=== PATIENT | female | born 1950 | race African-American/Black ===

== ENCOUNTER 2017-04-12 17:51 | Inpatient (IN) | payer MEDICARE, MEDICAID ==
[~2017-04-12 17:51] MED LIST: ISOVUE-370 76%-LOCM 1 ML ONE
[2017-04-12 19:20] LABS: #Eosinphils 0.1 thou/uL (0.0-0.7); #Lymphocytes 1.3 thou/uL (1.20-3.40); #Neutrophils 8.3 thou/uL (1.40-6.50); %Basophils 0.1 % (0.0-1.0); %Eosinophils 0.5 % (0.0-10.0); %Monocytes 9.3 % (0.0-10.0); Hematocrit 31.6 % (36.0-47.0); Red Blood Cell (RBC) Count 3.76 mill/uL (4.20-5.40); White Blood Cell (WBC) Count 10.7 thou/uL (4.8-10.8)
[2017-04-12] MEDS ORDERED: Acetaminophen 500 MG TAB ONE (19:22)
[2017-04-12 19:38] LABS: Lactic Acid - Sepsis 1.1 mmol/L (0.5-2.2)
[2017-04-12 19:44] LABS: ALT (SGPT) 7 U/L (8-55); AST (SGOT) 14 U/L (5-34); Alkaline Phosphatase 105 U/L (40-150); Anion Gap 16 mmol/L (10-20); BUN (Urea Nitrogen) 26 mg/dL (9.8-20.1); Bilirubin, Total 0.6 mg/dL (0.2-1.2); Calc. Creatinine Clearance 0 mL/min (70-130); Calcium 9.6 mg/dL (7.8-10.44); Carbon Dioxide 24 mmol/L (23-31); Chloride 100 mmol/L (98-107); Estimated GFR-MDRD 29; Globulin 4.8 g/dL (2.4-3.5); Protein, Total 8.8 g/dL (6.0-8.3)
[2017-04-12] MEDS ORDERED: Piperacillin/Tazobactam 3.375 GM in Sodium Chloride 0.9% 100 ML IVPB SCH (19:45)
[2017-04-12 20:12] LABS: Bilirubin Negative (Negative); Blood, Urine Negative (Negative); Glucose, Urine (Dipstick) Negative (Negative); Ketone, Urine Negative (Negative); Nitrite Negative (Negative); Protein, Urine (Dipstick) Negative (Neg-Trace)
--- NOTE | 2017-04-12 21:08 | CT ---
CT ABDOMEN AND PELVIS WITH CONTRAST 04/12/17 HISTORY: Incisional cellulitis. COMPARISON: None. FINDINGS: There is some peripheral nodularity in the left lung base. No pericardial effusion. Dense mitral tracy lar calcifications. Prior cholecystectomy changes. There is extensive skin thickening along the right lower quadrant of t he abdomen. There is gas as well as small collection of fluid and phlegmonous changes along the prior ostomy site. This is abnormal given the timeline. Fluid can be seen extending to the fascia along th e lateral margin of the right rectus abdominis muscle. No dilated loops of large or small bowel withi n the peritoneal cavity. Anastomotic sutures are noted along the colon. Mild reservoir effect of the biliary system. Prior cholecystectomy. Posterior spinal fusion lumbar spine with laminectomy changes. IMPRESSION: Likely infection along the sinus tract along the ostomy takedown site with fluid and gas extending al nimo the tract. This is abnormal given the timeline for takedown. No large round ovoid fluid collectio n is present as this is likely actively draining abscess. POS: [facility]
[2017-04-12] MEDS ORDERED: Ondansetron ODT 4 MG TAB SL PRN (23:09)
[2017-04-12] MEDS ORDERED: HYDROcodone/Acetaminophen 5/325 mg Tablet PO PRN ×2 (23:09)
[2017-04-12] MEDS ORDERED: Ondansetron HCl/PF 4 MG/2 ML Vial IVP PRN (23:09)
[2017-04-12] MEDS ORDERED: Acetaminophen 325 MG TAB PO PRN (23:09)
[2017-04-12] MEDS: 1/2 NS w/KCL 20 mEq 1,000 ML IV SCH (23:35)
[2017-04-12] MEDS ORDERED: Vancomycin HCl 1 GM in Premix Bag 1 BAG IVPB SCH (23:59)
[2017-04-13 01:12] VITALS: BMI 40.9
[2017-04-13] MEDS: Piperacillin/Tazobactam 2.25 GM in Sodium Chloride 0.9% 100 ML IVPB SCH ×4 (02:14→19:01)
[2017-04-13] MEDS: 1/2 NS w/KCL 20 mEq 1,000 ML IV SCH (08:57)
[2017-04-13] MEDS ORDERED: D5 1/2 NS w/20 mEq KCL 1,000 ML IV SCH (12:30)
[2017-04-13] MEDS ORDERED: Lidocaine 1% w/Epinephrine 1:100K 20 ML VIAL IJ SCH (12:30)
--- NOTE | 2017-04-13 15:31 | HP ---
CHIEF COMPLAINT: Abdominal pain and swelling. HISTORY OF PRESENT ILLNESS: Ms. Torres is a 66-year-old woman with an extensive past surgical history . She underwent an ileostomy takedown by Dr. Alberto about 6 weeks ago and was doing fine until about a week ago, when she noticed some swelling at her old ostomy site. She called and made an appointmen t for next Saturday, but the office had told her that if it got worse over the weekend she should come into the emergency room. Last night it started to get more painful and more swollen, so she did com e to the emergency room. While she was in the emergency room, she got up to walk to the bathroom and started to drain from her old ostomy site incision. A CT scan was performed, which showed some gas tracking down through the soft tissues from the incision consistent with a draining abscess. The pat asya has not had any abdominal pain except just at the incision. She has been eating and drinking no rmally and having normal bowel movements. She had a low-grade fever last night, but prior to that roberson s not had any fevers. PAST MEDICAL HISTORY: Hypertension, diabetes, arthritis, slipped disks and pinched nerves in her elyse k, and chronic renal insufficiency. 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 Back surgery, hysterectomy, and bilateral knee replacements. FAMILY HISTORY: She does have a family history of heart disease in a sister and 3 brothers. She has a family history of colon cancer in her dad and stroke in her mother. SOCIAL HISTORY: She is a nonsmoker. She does not drink or use illicit drugs. ALLERGIES: She has no known drug allergies. REVIEW OF SYSTEMS: A 10-system review of systems is negative except per HPI. The patient states kitty t she had quite a bit of drainage from her wound overnight, but less today. LABORATORY AND X-RAY FINDINGS: CT images are reviewed and I agree with the written report. White co unt is high normal at 10.7 with a left shift of 78% neutrophils. Electrolytes show a mild increase i n BUN and creatinine of 26 and 1.67, which is about her baseline. PHYSICAL EXAMINATION: VITAL SIGNS: The patient has been afebrile since her admission. She did have a low-grade fever in [facility] emergency room. Heart rate 74, respirations 20, 99% saturated on room air, blood pressure 144/80. GENERAL: Reveals a healthy appearing woman in no acute distress. She is obese with a BMI of 40.9. HEENT: Unremarkable. NECK: Supple, without lymphadenopathy or thyroid nodules. She is not jaundiced or icteric. She is not flushed or toxic in appearance. HEENT: Unremarkable. NECK: Supple, without lymphadenopathy or thyroid nodules. HEART: Regular in its rate and rhythm without murmurs, rubs, or gallops. LUNGS: Clear to auscultation bilaterally. ABDOMEN: Soft and nondistended. She has induration and tenderness and somewhat foul smelling browni sh cloudy drainage from her ileostomy incision through a small opening in the incision. She does not have any tenderness to palpation away from the site of the ostomy. Bowel sounds are difficult to he ar due to body habitus. She has a healed midline incision without evidence of herniation. EXTREMITIES: Warm and well-perfused without edema. NEUROLOGIC: No focal deficits. PSYCHIATRIC: Alert, oriented, and appropriate. ASSESSMENT: Wound infection, which appears to have mostly drained on CT. There is some gas tracking down to the tissues, but this is likely due to evacuation of the abscess. Patient has not noticed a ny gas escaping from her wound and the drainage contents look like plasma or enteric contents. Since the opening is so small, I have recommended extending the incision and the patient is in agreement w ith this. We will be able to digitally explore the wound then and make sure that it is completely dr cassandra and sent a clean culture. This was done as detailed below. There does appear to be an opening in the anterior rectus sheath, but the abscess does not appear to penetrate into the peritoneal cavi ty, and it does appear to be completely drained. The wound was irrigated and packed. We have asked the Wound Care Team to see the patient tomorrow for packing the wound. I did consider placing a VAC dressing, but until we determine if there is any communication with the bowel, I think it is best to avoid suction drainage. I am going to continue her on Zosyn. She got vancomycin in the emergency ro om, but given her somewhat marginal renal function and low probability of MRSA in this clinical situa tion, I am just going to continue with the Zosyn, pending culture results. PROCEDURE NOTE: After informed consent was obtained, the skin was prepped with Betadine and local an esthesia infused medially and laterally. The skin incision was extended in both directions and locul ations within the soft tissue abscess were broken up digitally. The rectus sheath fascia was palpate d. There was a small break in this, but no intramuscular abscess and no palpable break in the server manager ior sheath. The wound was irrigated to clear and then packed with half-inch iodoform gauze. Sterile dressings were placed. The patient tolerated the procedure well. There were no complications. Spe cimen is swab of abscess cavity for Gram stain and culture.
[2017-04-13] MEDS: Metoprolol Tartrate 25 MG TAB PO SCH (20:22)
[2017-04-14] MEDS: Piperacillin/Tazobactam 2.25 GM in Sodium Chloride 0.9% 100 ML IVPB SCH ×4 (01:45→20:50)
[2017-04-14 05:42] LABS: Anion Gap 11 mmol/L (10-20); BUN (Urea Nitrogen) 20 mg/dL (9.8-20.1); Calc. Creatinine Clearance 58 mL/min (70-130); Calcium 9.1 mg/dL (7.8-10.44); Carbon Dioxide 27 mmol/L (23-31); Chloride 103 mmol/L (98-107); Estimated GFR-MDRD 40
[2017-04-14 05:45] LABS: #Eosinphils 0.2 thou/uL (0.0-0.7); #Monocytes 0.7 thou/uL (0.11-0.59); #Neutrophils 3.2 thou/uL (1.40-6.50); %Basophils 0.3 % (0.0-1.0); %Monocytes 13.3 % (0.0-10.0); Hematocrit 30.2 % (36.0-47.0); Mean Platelet Volume 8.6 fL (7.4-10.4); White Blood Cell (WBC) Count 5.1 thou/uL (4.8-10.8)
[2017-04-14] MEDS: Enoxaparin Sodium 40 MG/0.4 ML SYRINGE SC SCH (08:26)
[2017-04-14] MEDS: Metoprolol Tartrate 25 MG TAB PO SCH ×2 (08:28→20:50)
[2017-04-14] MEDS ORDERED: Morphine PF 1 MG/ML SYR IVP PRN ×2 (08:30→08:32)
[2017-04-14] MEDS ORDERED: Morphine 4 MG/ML VIAL SLOW IVP PRN ×2 (08:34→08:35)
[2017-04-14] MEDS ORDERED: traMADol HCl 50 MG TAB PO PRN ×2 (08:36)
[2017-04-15] MEDS: Piperacillin/Tazobactam 2.25 GM in Sodium Chloride 0.9% 100 ML IVPB SCH ×4 (01:04→20:15)
[2017-04-15] MEDS: Enoxaparin Sodium 40 MG/0.4 ML SYRINGE SC SCH (08:07)
[2017-04-15] MEDS: Metoprolol Tartrate 25 MG TAB PO SCH ×2 (08:08→20:19)
[2017-04-16] MEDS: Enoxaparin Sodium 40 MG/0.4 ML SYRINGE SC SCH (08:11)
[2017-04-16] MEDS: Metoprolol Tartrate 25 MG TAB PO SCH (08:11)
[2017-04-16 08:51] VITALS: TEMP 98.4
--- NOTE | 2017-04-16 08:52 | DIS ---
DISCHARGE DIAGNOSIS: Abdominal wall abscess. PROCEDURES DURING ADMISSION: I&D. HOSPITAL COURSE: The patient was admitted, taken to the operating room where she underwent I&D. Pos toperatively, there was concern that she might have a fistula, but we never saw enteric fluid. A wou nd VAC was applied to the wound. She is doing well. She is afebrile. Pain is minimal. She is disc harged home in good condition on hydrocodone and Levaquin. She will follow up with me in 2 weeks.
[2017-04-16 09:17] VITALS: BP 147/73
== END 2017-04-16 13:37 | disposition home or self-care (01) | DRG 863 ==
LOC: ERS 17:51 → SURG B 22:00
PROVIDERS: ADMIT Surgery; ATTEND Surgery
PROC: 0H97XZX Drainage of Abdomen Skin, External Approach, Diagnostic (ICD-10-PCS; principal; 2017-04-13)
DX: T81.4XXA Infection following a procedure, initial encounter (principal); L02.211 Cutaneous abscess of abdominal wall; I10 Essential (primary) hypertension; E11.9 Type 2 diabetes mellitus without complications; E78.5 Hyperlipidemia, unspecified; B96.20 Unspecified Escherichia coli [E. coli] as the cause of diseases classified elsewhere; M19.90 Unspecified osteoarthritis, unspecified site
CPT/HCPCS: 36415; 74177; 80048; 80053; 81003; 83605; 85025; 87040; 87070; 87077; 87186; 87205; 96365; A4216; J1650; J2001; J2543; J3370; J7050; Q0162

== ENCOUNTER → 2017-07-15 | Day surgery (SDC) | payer MEDICARE, MEDICAID ==
[~2017-07-15] MED LIST changes: -ISOVUE-370 76%-LOCM 1 ML ONE; +Iopamidol 300 61% 30 ML VIAL ONE
--- NOTE | 2017-07-15 11:13 | RAD ---
FLUOROSCOPIC CANNULATION OF A RIGHT LOWER QUADRANT SOFT TISSUE WOUND: INDICATIONS: Concern for possible enterocutaneous fistula. Persistently draining wound at a previously developed right lower quadrant diverting ileostomy site. There was a superimposed infection that had accumulated following this surgery that required wound V AC treatment, as well as packing. There is concern for possible development of an enterocutaneous fi stula at this site. TECHNIQUE: The site overlying the right lower quadrant of the wound was unpacked. The site was then cleansed wi th Betadine solution. An 8 Czech red rubber catheter was guided down into the site. There was ante grade administration of an Isovue-300 contrast solution. Real-time fluoroscopic examination was perf ormed with acquisition of fluoroscopic supine images. Total fluoroscopic time was 0.7 minutes with a total exposure of 35.17 mGy. FINDINGS: During the examination and antegrade administration of the contrast solution, there was an enterocuta neous fistulous tract demonstrated, communicating with a loop of small bowel in the right lower quadr ant of the abdomen. This was best seen on image 2 of the fluoroscopic spot series. 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 POS: [facility]
== END ==
LOC: SPEC 06:46
PROVIDERS: ATTEND Surgery
PROC: 0W9G3ZX Drainage of Peritoneal Cavity, Percutaneous Approach, Diagnostic (ICD-10-PCS; principal; 2017-07-15)
PROC: BW111ZZ Fluoroscopy of Abdomen and Pelvis using Low Osmolar Contrast (ICD-10-PCS; 2017-07-15)
DX: K63.2 Fistula of intestine (principal); M19.90 Unspecified osteoarthritis, unspecified site; E11.22 Type 2 diabetes mellitus with diabetic chronic kidney disease; I12.9 Hypertensive chronic kidney disease with stage 1 through stage 4 chronic kidney disease, or unspecified chronic kidney disease; N18.9 Chronic kidney disease, unspecified; Z79.2 Long term (current) use of antibiotics; Z79.82 Long term (current) use of aspirin; Z79.891 Long term (current) use of opiate analgesic; Z79.899 Other long term (current) drug therapy; Z88.5 Allergy status to narcotic agent; Z96.653 Presence of artificial knee joint, bilateral; Z90.49 Acquired absence of other specified parts of digestive tract; Z90.710 Acquired absence of both cervix and uterus; Z98.891 History of uterine scar from previous surgery; Z98.890 Other specified postprocedural states
CPT/HCPCS: 20501; 76080

== ENCOUNTER 2017-07-28 16:33 | Emergency (ER) | payer MEDICARE, MEDICAID ==
[2017-07-28 18:03] LABS: #Eosinphils 0.3 thou/uL (0.0-0.7); #Lymphocytes 1.7 thou/uL (1.20-3.40); #Neutrophils 9.3 thou/uL (1.40-6.50); %Basophils 0.2 % (0.0-1.0); %Eosinophils 2.7 % (0.0-10.0); %Lymphocytes 13.7 % (21.0-51.0); %Monocytes 7.7 % (0.0-10.0); %Neutrophils 75.7 % (42.0-75.0); Hemoglobin 8.1 g/dL (12.0-16.0); Mean Corpuscular HGB CONC 32.1 g/dL (32.0-36.0); Mean Corpuscular Hemoglobin 25.9 pg (27.0-31.0); Mean Corpuscular Volume 80.9 fl (81.0-99.0); Mean Platelet Volume 7.7 fL (7.4-10.4); Platelet Count 267 thou/uL (130-400); RBC Distribution Width 17.3 % (11.5-14.5); Red Blood Cell (RBC) Count 3.14 mill/uL (4.20-5.40); White Blood Cell (WBC) Count 12.3 thou/uL (4.8-10.8)
[2017-07-28 18:10] LABS: PTT 30.8 SEC (22.9-36.1); Prothrombin Time 13.6 SEC (12.0-14.7)
[2017-07-28 18:21] LABS: Anion Gap 12 mmol/L (10-20); BUN (Urea Nitrogen) 14 mg/dL (9.8-20.1); Calc. Creatinine Clearance 0 mL/min (70-130); Calcium 9.3 mg/dL (7.8-10.44); Carbon Dioxide 26 mmol/L (23-31); Chloride 103 mmol/L (98-107); Estimated GFR-MDRD 60; Glucose 105 mg/dL (80-115); Potassium 3.2 mmol/L (3.5-5.1); Sodium 138 mmol/L (136-145)
== END 2017-07-28 19:20 | disposition home or self-care (01) ==
LOC: ERS 16:33
DX: K91.840 Postprocedural hemorrhage of a digestive system organ or structure following a digestive system procedure (principal); E78.5 Hyperlipidemia, unspecified; I10 Essential (primary) hypertension; Z79.899 Other long term (current) drug therapy
CPT/HCPCS: 80048; 85025; 85610; 85730; 99283